=== PATIENT | female | born 1940 | race Caucasian/White ===

== ENCOUNTER 2023-05-12 11:09 | Emergency (ER) | payer MEDICARE, BC ==
[2023-05-12] MEDS ORDERED: Sodium Chloride 0.9% 10 ML Syringe FLUSH PRN (11:28)
[2023-05-12] MEDS ORDERED: Bisacodyl 10 MG Supp RECTAL ONE (11:54)
== END 2023-05-12 12:35 | disposition home or self-care (01) ==
LOC: DL.ED 11:09
DX: K56.41 Fecal impaction (principal)
CPT/HCPCS: 99282; 99283